=== PATIENT | female | born 1990 | race African-American/Black ===

== ENCOUNTER 2024-10-23 00:44 | Emergency (ER) | payer SELFPAY ==
[~2024-10-23] VITALS: Ht 167.6 cm; Wt 71.0 kg
[2024-10-23 00:47] VITALS: O2SAT 99
[2024-10-23] MEDS: ACETAMINOPHEN 325MG TABLET PO STA (01:20)
[2024-10-23 01:27] LABS: BASOPHILS % 0.3 % (0.0-2.0); EOSINOPHILS % 0.4 % (0.0-5.0); HEMATOCRIT. 29.6 % (36.0-48.0); HEMOGLOBIN. 10.4 g/dL (12.0-16.0); LYMPHOCYTES % 24.7 % (20.0-50.0); MEAN CORPUSCULAR HEMOGLOBIN 24.3 pg (28.0-32.0); MEAN CORPUSCULAR HGB CONC 35.1 g/dL (31.0-37.0); MEAN CORPUSCULAR VOLUME 69.1 fL (81.0-99.0); MEAN PLATELET VOLUME 8.4 fl (7.4-10.4); NEUTROPHILS % 66.6 % (40.0-76.0); PLATELET 380 x1000/uL (130-400); RED BLOOD CELL COUNT 4.29 mill/uL (4.2-5.4); RED CELL DISTRIBUTION WIDTH 19.5 % (11.6-14.6); WHITE BLOOD COUNT 12.1 x1000/uL (4.5-11.0)
[2024-10-23 01:33] LABS: CHLORIDE 103 mEq/L (98-107); POTASSIUM 3.9 mEq/L (3.5-5.1); PROTHROMBIN TIME 10.6 sec (9.6-11.0); SODIUM 136 mEq/L (136-145)
[2024-10-23 01:34] LABS: CALCIUM 9.1 mg/dL (8.7-10.4); CARBON DIOXIDE 21 mEq/L (21-32)
[2024-10-23 01:38] LABS: CREATININE 0.6 mg/dL (0.6-1.0)
[2024-10-23 01:39] LABS: GLUCOSE 90 mg/dL (70-105); UREA NITROGEN BLOOD 7 mg/dL (9-23)
[2024-10-23 01:42] LABS: DIFFERENTIAL COMMENT 1
[2024-10-23 01:44] LABS: ADD RBC MORPHOLOGY YES
[2024-10-23 02:03] LABS: B-HCG QUANTITATIVE 157686 mIU/mL (<6)
[2024-10-23 02:51] LABS: CLARITY URINE CLEAR (CLEAR); COLOR URINE YELLOW (YELLOW); GLUCOSE URINE NEGATIVE (NEGATIVE); KETONES URINE TRACE (NEGATIVE); LEUKOCYTE ESTERASE URINE 2+ (NEGATIVE); NITRITE URINE NEGATIVE (NEGATIVE); OCCULT BLOOD URINE 1+ (NEGATIVE); PH URINE 6.5 (4.5-8.0); PROTEIN URINE NEGATIVE (NEGATIVE); SPECIFIC GRAVITY URINE 1.017 (1.005-1.030); UROBILINOGEN URINE 0.2 E.U./dL (0.2-1.0)
[2024-10-23 03:05] VITALS: BP 121/75; PULSE 70; RESP 18; TEMP 36.7; O2SAT 99
[2024-10-23 04:45] LABS: SQUAMOUS EPITHELIAL CELL URINE FEW /lpf (RARE/1+)
[2024-10-23 05:00] LABS: RBC URINE 0-2 /hpf (0-2)
[2024-10-23 05:01] LABS: BACTERIA URINE 2+
[2024-10-23 06:19] LABS: PLATELET ESTIMATE NORMAL
[2024-10-23 06:21] LABS: HYPOCHROMASIA 1+; MICROCYTOSIS 2+
== END 2024-10-23 04:00 | disposition home or self-care (01) ==
LOC: ER 00:57
DX: O20.0 Threatened abortion (principal); Z3A.12 12 weeks gestation of pregnancy
CPT/HCPCS: 36415; 76801; 80048; 81003; 84702; 85025; 86850; 86900; 99284

== ENCOUNTER 2024-10-25 01:40 | Emergency (ER) | payer SELFPAY ==
[~2024-10-25] VITALS: Ht 162.6 cm; Wt 73.0 kg
[2024-10-25 01:43] VITALS: O2SAT 100
[2024-10-25 01:54] VITALS: BP 122/86; PULSE 92; RESP 18; TEMP 37; O2SAT 100
== END 2024-10-25 03:12 | disposition left against medical advice (07) ==
LOC: ER 01:40
DX: O26.891 Other specified pregnancy related conditions, first trimester (principal); Z00.00 Encounter for general adult medical examination without abnormal findings; Z53.21 Procedure and treatment not carried out due to patient leaving prior to being seen by health care provider